=== PATIENT | female | born 1940 | race Two or more races ===

== ENCOUNTER → 2019-02-19 | Outpatient (CLI) | payer MEDICARE, MEDICAID ==
[~2019-02-19] MED LIST: ACET-1600 PO; ALEN70TA6 PO; ASPI-496 PO; ATOR40TA78 PO; CALC-126 PO; CHOL200024 PO; GABA600T7 PO; GLIM1TAB3 PO; IBUP-1223 PO; LEVO150T5 PO; LISI1TAB19 PO; METF500T17 PO; TRAM50TA2 PO
[2019-02-19 13:26] LABS: BASOPHILS # (AUTO) 0.02 x10^3/uL (0-0.1); BASOPHILS % (AUTO) 0 % (0-1); EOSINOPHILS # (AUTO) 0.07 x10^3/uL (0-0.4); EOSINOPHILS % (AUTO) 1 % (1-7); LYMPHOCYTES # (AUTO) 1.32 x10^3/uL (1-3.4); LYMPHOCYTES % (AUTO) 24 % (22-44); MD NO; MEAN CORPUSCULAR HEMOGLOBIN 30.7 pg (27.0-34.8); MEAN CORPUSCULAR HGB CONC 32.8 g/dL (32.4-35.8); MEAN CORPUSCULAR VOLUME 93.7 fL (80-100); MEAN PLATELET VOLUME 7.9 fL (7.4-10.4); MONOCYTES # (AUTO) 0.37 x10^3/uL (0.2-0.8); MONOCYTES % (AUTO) 7 % (2-9); NEUTROPHILS % (AUTO) 68 % (42-75); PLATELET COUNT 240 x10^3/uL (130-400); RED BLOOD COUNT 3.82 x10^6/uL (3.82-5.3); RED CELL DISTRIBUTION WIDTH 13.2 % (9.6-15.2)
[2019-02-19 13:34] LABS: INTERNATIONAL NORMALIZED RATIO 0.91 (0.93-1.1); PROTHROMBIN TIME 9.6 Seconds (9.6-11.5)
[2019-02-19 13:35] LABS: ALANINE AMINOTRANSFERASE 22 U/L (12-78); ALBUMIN 3.7 g/dL (3.4-5.0); ANION GAP 7 mmol/L (5-15); CALCIUM 8.3 mg/dL (8.5-10.1); CHLORIDE 110 mmol/L (98-107); CREATININE 0.66 mg/dL (0.55-1.02)
[2019-02-19 13:38] LABS: ALKALINE PHOSPHATASE 60 U/L (45-117); BILIRUBIN,TOTAL 0.4 mg/dL (0.2-1.0); TOTAL PROTEIN 7.7 g/dL (6.4-8.2)
== END | disposition home or self-care (01) ==
LOC: STAR 11:59
PROVIDERS: ATTEND Neurological Surgery
DX: Z01.818 Encounter for other preprocedural examination (principal); G57.32 Lesion of lateral popliteal nerve, left lower limb
CPT/HCPCS: 36415; 80053; 85025; 85610; 85730; 93005